=== PATIENT | female | born 1975 | race African-American/Black ===

== ENCOUNTER 2017-01-13 22:28 | Emergency (ER) | payer OTHER ==
[~2017-01-13] VITALS: Ht 172.7 cm; Wt 169.6 kg
[~2017-01-13 22:28] MED LIST: ACET-3457 PO; IBUP-974 PO; [UNRECOGNIZED DRUG - CODE] PO
[2017-01-13 22:35] VITALS: BP 156/103
--- NOTE | 2017-01-13 23:56 | NUR ---
PT TAKEN TO BED 9
--- NOTE | 2017-01-14 | NUR ---
41/F W C/O 01/01 MIDBACK/NECK STABBING PAIN, GRADUAL ONSET X 1 MONTH. PT STATES "I HAVE SOFT BONES AND I USUALLY HAVE BACK PAIN AND I WOULD TAKE IBUPROFEN AND IT WILL GO AWAY, BUT THIS TIME IT HAS NOT". NO SURGICAL HISTORY. BACK/NECK PAIN ASSOSCIATED WITH HEADACHE X 2 DAYS. ALSO C/O 01/01 LUQ ABD PAIN, ACHING, NONRADIATING X 3 DAYS. ASSOSCIATED SYMPTOMS: NAUSEA AND DIARRHEA, DENIES VOMITING AND FEVER. CURRENT BS: 220, LAST MEAL 2 HOURS AGO. PMH: HTN, DM, RA
--- NOTE | 2017-01-14 01:43 | NUR ---
Dr. Long evaluating patient at bedside.
[2017-01-14] MEDS ORDERED: NACL 0.9% 1,000 ML IV ONE (01:55)
[2017-01-14] MEDS ORDERED: HYDROmorphone 1 MG/ML AMP IVP ONE (01:55)
[2017-01-14] MEDS ORDERED: METOCLOPRAMIDE 10 MG/2 ML INJ VIAL IVP ONE (01:55)
[2017-01-14 02:28] LABS: MEAN CORPUSCULAR VOLUME 73 fL (80-94)
[2017-01-14 02:29] LABS: APPEARANCE,URINE CLEAR (CLEAR); BILIRUBIN,URINE NEGATIVE (NEGATIVE); BLOOD, URINE NEGATIVE (NEGATIVE); COLOR,URINE YELLOW (YELLOW); LEUKOCYTE ESTERASE ,URINE NEGATIVE (NEGATIVE); NITRITE, URINE NEGATIVE (NEGATIVE); UGLUCOSE NEGATIVE (NEGATIVE)
[2017-01-14 02:32] LABS: HEMATOCRIT 35.8 % (36-48); HEMOGLOBIN 11.4 g/dL (12.0-16.0); MEAN CORPUSCULAR HEMOGLOBIN 23 pg (27-31); MEAN CORPUSCULAR HGB CONC 32 g/dL (33-37); PLATELET COUNT (AUTO) 382 K/uL (140-450); RED BLOOD CELL COUNT(AUTO) 4.89 MIL/uL (4.20-5.40); RED CELL DISTRIBUTION WIDTH 14.5 % (11.6-13.7); WHITE BLOOD COUNT (AUTO) 10.4 K/uL (4.8-10.8)
[2017-01-14 02:36] LABS: ANION GAP 8.7 (8-16); CARBON DIOXIDE 30.8 mmol/L (21-32); CREATININE 0.9 mg/dL (0.6-1.3); POTASSIUM 3.5 mmol/L (3.5-5.1)
[2017-01-14 02:39] LABS: EOSINOPHILS % (MANUAL) 1 % (0-4); LYMPHOCYTES % (MANUAL) 46 % (20-46); MONOCYTES % (MANUAL) 4 % (5-12)
[2017-01-14 02:42] LABS: ALBUMIN 3.7 g/dL (3.4-5.0); RBC,URINE 0-5 (RARE) /HPF (0-5); TOTAL BILIRUBIN 0.4 mg/dL (0.0-1.0); WBC,URINE NONE SEEN /HPF (0-5)
--- NOTE | 2017-01-14 02:44 | NUR ---
PT ASLEEP COMFORTABLY ON BED, VSS, PT STABLE. ALL NEEDS MET AT THIS TIME.
--- NOTE | 2017-01-14 03:05 | NUR ---
Note mooseone in EDM - 01/14/[address] [facility] Patient discharged with v/s stable. Written and verbal after care instructions given and explained. Patient alert, oriented and verbalized understanding of instructions. Ambulatory with steady gait. All questions addressed prior to discharge. ID band removed. Patient advised to follow up with PMD. Rx of Reglan 10mg given. Patient educated on indication of medication including possible reaction and side effects. Opportunity to ask questions provided and answered.
--- NOTE | 2017-01-14 03:06 | NUR ---
IV removed, catheter intact and site benign. Applied folded 4x4 gauze and tape to stop bleeding.
[2017-01-14 03:07] VITALS: BP 162/94
== END 2017-01-14 03:06 | disposition home or self-care (01) ==
LOC: MED 22:28
DX: G43.909 Migraine, unspecified, not intractable, without status migrainosus (principal); M62.830 Muscle spasm of back; J45.909 Unspecified asthma, uncomplicated; E11.9 Type 2 diabetes mellitus without complications; I10 Essential (primary) hypertension; M79.7 Fibromyalgia; Z88.2 Allergy status to sulfonamides; Z88.5 Allergy status to narcotic agent; Z88.8 Allergy status to other drugs, medicaments and biological substances; Z79.899 Other long term (current) drug therapy
CPT/HCPCS: 36415; 80053; 81001; 81025; 82948; 84484; 85025; 93005; 96361; 96374; 96375; 99285; J1170; J2765; J7030

== ENCOUNTER 2017-01-19 03:28 | Emergency (ER) | payer OTHER ==
[~2017-01-19] VITALS: Ht 172.7 cm; Wt 163.3 kg
[2017-01-19 03:31] VITALS: BP 147/104
--- NOTE | 2017-01-19 03:49 | NUR ---
PT TAKEN TO XRAY
--- NOTE | 2017-01-19 03:57 | NUR ---
PT RETURN FROM XRAY
--- NOTE | 2017-01-19 04:35 | NUR ---
PT TAKEN TO BED 11
--- NOTE | 2017-01-19 05:29 | NUR ---
41/F PRESENTS TO THE ER C/O PAIN TO THE RT FOOT/TOE POST BRICK FALLING ON FOOT. PMH DM, CHRONIC PAIN. PT IS ABLE TO MOVE RIGHT FOOT AND RT TOES PULSES ARE PRESENT, CAP REFILL <2 SEC. SWELLING TO RT FOOT NO ACTIVE BLEEDING NOTED AT THIS TIME. PATIENT RATES PAIN AT 10 ACHING AND NON RADIATING. PT DENIES N/T. PT IN BED WITH AT BEDSIDE. ER MD NOTIFIED OF PT STATUS.
--- NOTE | 2017-01-19 05:37 | NUR ---
Dr. Da Silva evaluating patient at bedside.
[2017-01-19] MEDS ORDERED: KETOROLAC 60 MG/2 ML VIAL IM ONE (05:40)
[2017-01-19 07:04] VITALS: BP 147/104
--- NOTE | 2017-01-19 07:05 | NUR ---
Patient discharged with v/s stable. Written and verbal after care instructions given and explained. Patient verbalized understanding. WHEELCHAIR to car. All questions addressed prior to discharge. Advised to follow up with PMD.
== END 2017-01-19 07:05 | disposition home or self-care (01) ==
LOC: MED 03:28
DX: S90.32XA Contusion of left foot, initial encounter (principal); M79.671 Pain in right foot; J45.909 Unspecified asthma, uncomplicated; E11.9 Type 2 diabetes mellitus without complications; I10 Essential (primary) hypertension; Z88.2 Allergy status to sulfonamides; Z88.1 Allergy status to other antibiotic agents; Z88.5 Allergy status to narcotic agent; Z88.8 Allergy status to other drugs, medicaments and biological substances; Z79.899 Other long term (current) drug therapy; W04.XXXA Fall while being carried or supported by other persons, initial encounter; Y93.89 Activity, other specified; Y92.89 Other specified places as the place of occurrence of the external cause; Y99.8 Other external cause status
CPT/HCPCS: 73630; 96372; 99284; J1885

== ENCOUNTER 2017-07-26 11:47 | Emergency (ER) | payer OTHER ==
[~2017-07-26] VITALS: Ht 172.7 cm; Wt 167.8 kg
[2017-07-26 11:50] VITALS: BP 156/91
--- NOTE | 2017-07-26 12:00 | NUR ---
PT. CAME INTO ED W/ C/O PAIN IN HER L HAND JOINTS AND BILATERAL FOOT JOINTS AND ALSO A PAIN UNDER HER L BREAST THAT STARTED LAST NIGHT. PT. STATES " I HAVE PAIN THAT STARTED LAST NIGHT, I DONT KNOW WHY AND I DECIDED TO COME GET CHECKED OUT". 8/10 PAIN IN L HAND JOINTS AND BILATERAL FOOT JOINTS DESCRIBED ACHING PAIN THAT IS NON RADIATING, ALSO PAIN UNDER L BREAST THAT STARTED LAST NIGHT THAT RADIATES TO HER L UPPER BACK AND DESCRIBES IT ACHING DULL PAIN THAT IS CONTINOUS. AAOX4, RR EVEN AND UNLABORED, DENIES N/V/D. DENIES SOB. FIANCEE AT BEDSIDE. DR. ARAUJO NOTIFIED. WILL CONTINUE TO MONITOR.
[2017-07-26 12:49] LABS: BASOPHILS # (AUTO) 0.1 K/uL (0.00-0.22); BASOPHILS % (AUTO) 0.6 % (0.0-2.0); EOSINOPHILS # (AUTO) 0.2 K/uL (0-0.4); EOSINOPHILS % (AUTO) 1.5 % (0.0-4.0); HEMOGLOBIN 9.8 g/dL (12.0-16.0); LYMPHOCYTES % (AUTO) 29.2 % (20.5-51.1); MEAN CORPUSCULAR HEMOGLOBIN 22 pg (27-31); MEAN CORPUSCULAR HGB CONC 31 g/dL (33-37); MEAN CORPUSCULAR VOLUME 70.4 fL (80-94); MONOCYTES # (AUTO) 0.7 K/uL (0.8-1.0); MONOCYTES % (AUTO) 6.9 % (1.7-9.3); NEUTROPHILS # (AUTO) 6.4 K/uL (1.8-7.7); NEUTROPHILS % (AUTO) 61.8 % (42.2-75.2); PLATELET COUNT (AUTO) 347 K/uL (140-450); RED BLOOD CELL COUNT(AUTO) 4.55 MIL/uL (4.20-5.40); RED CELL DISTRIBUTION WIDTH 16.1 % (11.6-13.7); WHITE BLOOD COUNT (AUTO) 10.3 K/uL (4.8-10.8)
[2017-07-26 12:58] LABS: CARBON DIOXIDE 31.8 mmol/L (21-32); CREATININE 1.1 mg/dL (0.6-1.3); POTASSIUM 3.8 mmol/L (3.5-5.1)
[2017-07-26 13:04] LABS: ALBUMIN 3.2 g/dL (3.4-5.0); TOTAL BILIRUBIN 0.3 mg/dL (0.0-1.0)
--- NOTE | 2017-07-26 14:04 | NUR ---
Patient discharged with v/s stable. Written and verbal after care instructions given and explained. Patient alert, oriented and verbalized understanding of instructions. Ambulatory with steady gait. All questions addressed prior to discharge. ID band removed. Patient advised to follow up with PMD. Rx of prednisone given. Patient educated on indication of medication including possible reaction and side effects. Opportunity to ask questions provided and answered. labs and cxr results handed to pt to give to pmd upon f/u within 2-3 days
[2017-07-26 14:05] VITALS: BP 166/89
== END 2017-07-26 14:04 | disposition home or self-care (01) ==
LOC: MED 11:47
DX: M06.80 Other specified rheumatoid arthritis, unspecified site (principal); R20.2 Paresthesia of skin; R07.89 Other chest pain; E11.9 Type 2 diabetes mellitus without complications; I10 Essential (primary) hypertension; J45.909 Unspecified asthma, uncomplicated; Z88.1 Allergy status to other antibiotic agents; Z88.2 Allergy status to sulfonamides; Z88.6 Allergy status to analgesic agent; Z88.8 Allergy status to other drugs, medicaments and biological substances
CPT/HCPCS: 36415; 71045; 80053; 81002; 81025; 83690; 83880; 84484; 85025; 93005; 99285; Q0092

== ENCOUNTER 2017-12-16 17:12 | Emergency (ER) | payer OTHER ==
[~2017-12-16] VITALS: Ht 172.7 cm; Wt 163.3 kg
--- NOTE | 2017-12-16 17:16 | NUR ---
PT AMBULATES TO BED 2
[2017-12-16 17:22] VITALS: BP 143/78
--- NOTE | 2017-12-16 17:33 | NUR ---
42YO F bib fiance c/o chest pain since saturday INTERMITTENTLY HAVING DULLPAIN , "maybe due to stress" PER PT, pressure 9/10 pain scale. PT STATS PAINS START WHEN ARGUING WITH PARTNER. ER MDMADE AWARE. LS CLEAR THROUGHOUT. ABD SOFT NON TENDER. WILL CONTINUE TO MONITOR. ER MD MADE AWARE. PT POSITIONED FOR COMFORT hx; dm, fibromyalgia, garduno palsy, anemia, htn rx; glipizide
--- NOTE | 2017-12-16 17:36 | NUR ---
EMT AT BEDSIDE FOR EKG
--- NOTE | 2017-12-16 17:50 | NUR ---
PT AMBULATED TO BATHROOM WITH STEADY GAIT
[2017-12-16] MEDS ORDERED: NACL 0.9% 1,000 ML IV ONE (19:45)
[2017-12-16] MEDS ORDERED: fentaNYL 0.05 MG/ML VIAL IVP ONE (19:45)
[2017-12-16 20:08] LABS: BASOPHILS % (AUTO) 0.6 % (0.0-2.0); EOSINOPHILS # (AUTO) 0.2 K/uL (0-0.4); EOSINOPHILS % (AUTO) 2.5 % (0.0-4.0); HEMATOCRIT 32.7 % (36-48); HEMOGLOBIN 10.3 g/dL (12.0-16.0); LYMPHOCYTES # (AUTO) 2.4 K/uL (2.5-16.5); LYMPHOCYTES % (AUTO) 33.5 % (20.5-51.1); MEAN CORPUSCULAR HEMOGLOBIN 23 pg (27-31); MEAN CORPUSCULAR HGB CONC 31 g/dL (33-37); MEAN CORPUSCULAR VOLUME 71.6 fL (80-94); MONOCYTES # (AUTO) 0.7 K/uL (0.8-1.0); MONOCYTES % (AUTO) 10.3 % (1.7-9.3); NEUTROPHILS # (AUTO) 3.8 K/uL (1.8-7.7); NEUTROPHILS % (AUTO) 53.1 % (42.2-75.2); PLATELET COUNT (AUTO) 308 K/uL (140-450); RED BLOOD CELL COUNT(AUTO) 4.57 MIL/uL (4.20-5.40); RED CELL DISTRIBUTION WIDTH 16.5 % (11.6-13.7); WHITE BLOOD COUNT (AUTO) 7.2 K/uL (4.8-10.8)
[2017-12-16 20:28] LABS: POTASSIUM 4.2 mmol/L (3.5-5.1)
[2017-12-16 20:29] LABS: ANION GAP 10.2 (8-16); CREATININE 0.8 mg/dL (0.6-1.3); TOTAL BILIRUBIN 0.5 mg/dL (0.0-1.0)
[2017-12-16 20:30] LABS: ALBUMIN 3.3 g/dL (3.4-5.0)
--- NOTE | 2017-12-16 20:50 | NUR ---
PT LAYING IN BED, NO NEW NEEDS AT THIS TIME.
[2017-12-16 21:52] VITALS: BP 156/83
--- NOTE | 2017-12-16 21:53 | NUR ---
Patient discharged with v/s stable. Written and verbal after care instructions given and explained. Patient alert, oriented and verbalized understanding of instructions. Ambulatory with steady gait. All questions addressed prior to discharge. ID band removed. Patient advised to follow up with PMD. Rx of MEDROL, IBUPROFEN, TRAMADOL, PROTONIX given. Patient educated on indication of medication including possible reaction and side effects. Opportunity to ask questions provided and answered.
== END 2017-12-16 21:52 | disposition home or self-care (01) ==
LOC: MED 17:12
DX: M94.0 Chondrocostal junction syndrome [Tietze] (principal); J45.909 Unspecified asthma, uncomplicated; E11.9 Type 2 diabetes mellitus without complications; I10 Essential (primary) hypertension; M79.7 Fibromyalgia; G51.0 Bell's palsy; Z86.2 Personal history of diseases of the blood and blood-forming organs and certain disorders involving the immune mechanism; Z88.1 Allergy status to other antibiotic agents; Z88.2 Allergy status to sulfonamides; Z88.5 Allergy status to narcotic agent; Z88.6 Allergy status to analgesic agent; Z79.899 Other long term (current) drug therapy
CPT/HCPCS: 36415; 71045; 80053; 81002; 81025; 84484; 85025; 93005; 96374; 99285; J3010; Q0092; 96361; J7030

== ENCOUNTER 2018-02-21 03:20 | Emergency (ER) | payer OTHER ==
[~2018-02-21] VITALS: Ht 172.7 cm; Wt 163.3 kg
[2018-02-21 03:27] VITALS: BP 172/90
[2018-02-21] MEDS ORDERED: KETOROLAC 30 MG/ML VIAL IM ONE (04:55)
[2018-02-21] MEDS ORDERED: DIAZEPAM 5 MG TAB PO ONE (04:55)
[2018-02-21 05:44] VITALS: BP 172/90
== END 2018-02-21 05:44 | disposition home or self-care (01) ==
LOC: MED 03:20
DX: S39.012A Strain of muscle, fascia and tendon of lower back, initial encounter (principal); J45.909 Unspecified asthma, uncomplicated; I10 Essential (primary) hypertension; E11.9 Type 2 diabetes mellitus without complications; Z88.2 Allergy status to sulfonamides; Z88.1 Allergy status to other antibiotic agents; Z88.8 Allergy status to other drugs, medicaments and biological substances; Z88.5 Allergy status to narcotic agent; Z79.1 Long term (current) use of non-steroidal anti-inflammatories (NSAID); Z79.899 Other long term (current) drug therapy; W18.49XA Other slipping, tripping and stumbling without falling, initial encounter; Y93.89 Activity, other specified; Y92.524 Gas station as the place of occurrence of the external cause; Y99.8 Other external cause status
CPT/HCPCS: 96372; 99283; J1885

== ENCOUNTER 2018-05-07 11:17 | Emergency (ER) | payer OTHER ==
[~2018-05-07] VITALS: Ht 172.7 cm; Wt 163.3 kg
--- NOTE | 2018-05-07 11:24 | NUR ---
PT AMBULATED TO ER BED 07
[2018-05-07 11:28] VITALS: BP 156/81
--- NOTE | 2018-05-07 11:30 | NUR ---
C/O HEADACHE/NAUSEA. SKIN IS PINK/WARM/DRY; AAOX4 WITH EVEN AND STEADY GAIT; LUNGS CLEAR BL; HR EVEN AND REGULAR; PT DENIES ANY FEVER, CP, SOB, OR COUGH AT THIS TIME; PATIENT STATES PAIN OF 10/10 AT THIS TIME; VSS; PATIENT POSITIONED FOR COMFORT; HOB ELEVATED; BEDRAILS UP X2; BED DOWN. ER MD MADE AWARE OF PT STATUS.
[2018-05-07] MEDS ORDERED: NACL 0.9% 1,000 ML IV ONE (11:45)
[2018-05-07] MEDS ORDERED: METOCLOPRAMIDE 10 MG/2 ML INJ VIAL IVP ONE (11:45)
[2018-05-07] MEDS ORDERED: diphenhydrAMINE 50 MG/ML VIAL IVP ONE (11:45)
--- NOTE | 2018-05-07 11:45 | NUR ---
DR WILLIAM AT BEDSIDE.
[2018-05-07] MEDS ORDERED: METOCLOPRAMIDE 10 MG/2 ML INJ VIAL IM ONE (12:25)
[2018-05-07] MEDS ORDERED: diphenhydrAMINE 50 MG/ML VIAL IM ONE (12:25)
--- NOTE | 2018-05-07 13:00 | NUR ---
NO NEEDS STATED AT THIS TIME.
[2018-05-07 14:57] VITALS: BP 148/78
--- NOTE | 2018-05-07 14:58 | NUR ---
Patient discharged with v/s stable. Written and verbal after care instructions given and explained. Patient alert, oriented and verbalized understanding of instructions. Ambulatory with steady gait. All questions addressed prior to discharge. ID band removed. Patient advised to follow up with PMD. Rx of IMITREX, FIORICET given. Patient educated on indication of medication including possible reaction and side effects. Opportunity to ask questions provided and answered.
== END 2018-05-07 14:58 | disposition home or self-care (01) ==
LOC: MED 11:17
DX: R51 Headache (principal); J45.909 Unspecified asthma, uncomplicated; E11.9 Type 2 diabetes mellitus without complications; I10 Essential (primary) hypertension; G43.909 Migraine, unspecified, not intractable, without status migrainosus; Z79.899 Other long term (current) drug therapy; Z88.1 Allergy status to other antibiotic agents; Z88.2 Allergy status to sulfonamides; Z88.5 Allergy status to narcotic agent; Z88.8 Allergy status to other drugs, medicaments and biological substances
CPT/HCPCS: 70450; 81002; 81025; 96372; 99284; J2765; J1200

== ENCOUNTER 2019-01-02 07:41 | Emergency (ER) | payer OTHER ==
[~2019-01-02] VITALS: Ht 172.7 cm; Wt 163.3 kg
[2019-01-02] MEDS ORDERED: GLIP5TER PO (07:47)
[2019-01-02 07:48] VITALS: BP 169/93
[2019-01-02] MEDS ORDERED: fentaNYL 0.05 MG/ML VIAL IM ONE (11:15)
[2019-01-02 12:13] VITALS: BP 135/82
== END 2019-01-02 12:14 | disposition home or self-care (01) ==
LOC: MED 07:41
DX: R10.32 Left lower quadrant pain (principal); R19.7 Diarrhea, unspecified; M54.9 Dorsalgia, unspecified; J45.909 Unspecified asthma, uncomplicated; E11.9 Type 2 diabetes mellitus without complications; I10 Essential (primary) hypertension; Z79.84 Long term (current) use of oral hypoglycemic drugs; Z79.899 Other long term (current) drug therapy; Z88.2 Allergy status to sulfonamides; Z88.1 Allergy status to other antibiotic agents; Z88.5 Allergy status to narcotic agent; Z88.8 Allergy status to other drugs, medicaments and biological substances
CPT/HCPCS: 74176; 76856; 81002; 81025; 96372; 99284; J3010; Q0092

== ENCOUNTER 2019-03-03 21:30 | Emergency (ER) | payer OTHER ==
[~2019-03-03] VITALS: Ht 172.7 cm; Wt 163.3 kg
[2019-03-03 21:30] VITALS: BP 158/114
[~2019-03-03 21:30] MED LIST changes: -ACET-3457 PO; +GLIP5TER PO; -IBUP-974 PO
--- NOTE | 2019-03-03 21:34 | NUR ---
TO LOBBY A/W BED AMBULATORY
--- NOTE | 2019-03-03 21:56 | NUR ---
PT AMBULATED TO BED 01
--- NOTE | 2019-03-03 22:00 | NUR ---
ASSESSMENT COMPLETE AT THIS TIME. PATIENT LAYING BED WITH SIDE RAIL UP ON ONE SIDE. AT BEDSIDE. BED IN LOW LOCKED POSITION. AAO., VSS ON MONITOR.
[2019-03-03] MEDS ORDERED: NACL 0.9% 1,000 ML IV ONE (22:10)
[2019-03-03] MEDS ORDERED: ONDANSETRON 4 MG/2 ML VIAL IVP ONE (22:10)
[2019-03-03] MEDS ORDERED: KETOROLAC 30 MG/ML VIAL IVP ONE (22:10)
[2019-03-03] MEDS ORDERED: hydrALAZINE 20 MG/ML VIAL IVP ONE (22:15)
[2019-03-03 22:41] LABS: BASOPHILS # (AUTO) 0.1 K/uL (0.00-0.22); EOSINOPHILS # (AUTO) 0.1 K/uL (0-0.4); HEMOGLOBIN 9.7 g/dL (12.0-16.0); LYMPHOCYTES # (AUTO) 2.3 K/uL (2.5-16.5); MONOCYTES # (AUTO) 0.7 K/uL (0.8-1.0); NEUTROPHILS # (AUTO) 4.5 K/uL (1.8-7.7); RED CELL DISTRIBUTION WIDTH 16.9 % (11.6-13.7)
[2019-03-03 22:43] LABS: APPEARANCE,URINE CLEAR (CLEAR); BILIRUBIN,URINE NEGATIVE (NEGATIVE); BLOOD, URINE NEGATIVE (NEGATIVE); COLOR,URINE YELLOW (YELLOW); LEUKOCYTE ESTERASE ,URINE NEGATIVE (NEGATIVE); NITRITE, URINE NEGATIVE (NEGATIVE); PH,URINE 5.5 (5.0-9.0); UGLUCOSE NEGATIVE (NEGATIVE)
[2019-03-03 22:45] LABS: EOSINOPHILS % (AUTO) 1.6 % (0.0-4.0); LYMPHOCYTES % (AUTO) 29.4 % (20.5-51.1); MEAN CORPUSCULAR HEMOGLOBIN 21 pg (27-31); MEAN CORPUSCULAR HGB CONC 30 g/dL (33-37); MONOCYTES % (AUTO) 9.1 % (1.7-9.3); NEUTROPHILS % (AUTO) 58.9 % (42.2-75.2); PLATELET COUNT (AUTO) 367 K/uL (140-450); RED BLOOD CELL COUNT(AUTO) 4.71 MIL/uL (4.20-5.40); WHITE BLOOD COUNT (AUTO) 7.7 K/uL (4.8-10.8)
[2019-03-03 22:49] LABS: CARBON DIOXIDE 27.9 mmol/L (21-32); CREATININE 0.8 mg/dL (0.6-1.3); POTASSIUM 3.9 mmol/L (3.5-5.1)
[2019-03-03 22:54] LABS: HEMATOCRIT 29.1 % (36-48); MEAN CORPUSCULAR VOLUME 68.4 fL (80-94)
[2019-03-03 22:55] LABS: ALBUMIN 3.2 g/dL (3.4-5.0); TOTAL BILIRUBIN 0.6 mg/dL (0.0-1.0)
[2019-03-03] MEDS ORDERED: PROCHLORPERAZINE 10 MG/2 ML VIAL IVP ONE (23:40)
[2019-03-03] MEDS ORDERED: diphenhydrAMINE 50 MG/ML VIAL IVP ONE (23:40)
[2019-03-04 00:29] VITALS: BP 148/68
--- NOTE | 2019-03-04 00:29 | NUR ---
Patient discharged with v/s stable. Written and verbal after care instructions given and explained. Patient verbalized understanding. Ambulatory with steady gait. All questions addressed prior to discharge. Advised to follow up with PMD. PT STATED SHE HAD NO PAIN PRIOR TO D/C .
--- NOTE | 2019-03-04 12:16 | NUR ---
Late entry. Confirmed with RN that 0.9 NS IV completed at 2405
== END 2019-03-04 00:29 | disposition home or self-care (01) ==
LOC: MED 21:30
DX: R53.1 Weakness (principal); F15.90 Other stimulant use, unspecified, uncomplicated; K59.00 Constipation, unspecified; E86.0 Dehydration; R51 Headache; M79.7 Fibromyalgia; J45.909 Unspecified asthma, uncomplicated; E11.9 Type 2 diabetes mellitus without complications; I10 Essential (primary) hypertension; Z79.84 Long term (current) use of oral hypoglycemic drugs; Z79.899 Other long term (current) drug therapy; Z88.1 Allergy status to other antibiotic agents; Z88.5 Allergy status to narcotic agent; Z88.2 Allergy status to sulfonamides; Z88.8 Allergy status to other drugs, medicaments and biological substances
CPT/HCPCS: 36415; 80053; 81003; 84484; 85025; 93005; 96361; 96374; 96375; 99283; J0360; J0780; J1200; J1885; J2405; J7030

== ENCOUNTER 2019-11-14 22:13 | Emergency (ER) | payer OTHER ==
[~2019-11-14] VITALS: Ht 172.7 cm; Wt 173.7 kg
[2019-11-14 22:43] VITALS: BP 156/124
--- NOTE | 2019-11-14 22:48 | NUR ---
PT AMBULATED TO BED 03 WITH STEADY GAIT.
--- NOTE | 2019-11-14 23:01 | NUR ---
C/O EPIGASTRIC PAIN X 3 WEEKS. PT B/P- 156/124. HASN'T TAKEN MEDS TODAY. MHX: FIBROMYALGIA, HTN, DIABETES, ARTHRITIS ALLERGIES: AMOXICILLIN, SULFA, AUGMENTIN, BACTRIM
--- NOTE | 2019-11-14 23:13 | NUR ---
PT C/O OF STOMACH PAIN RADIATING INTO LEFT SIDE OF HER BACK X 3 WEEKS, SHARP ACHING TYPE PAIN. HAS BEEN HAVING APPETITE AND EATING CAUSES INCREASE IN DISCOMFORT. +N/D AND CONSTIPATION, NO VOMITINMG. NO PAIN WITH URINATION. AFEBRILE. NO SOB. + BOWEL SOUNDS NONTENDER ABD UPON PALPATION. BED IN LOWEST POSITION AND SIDERAIL UP X 1.
--- NOTE | 2019-11-14 23:13 | NUR ---
URINE COLLECTED AND DIP DONE, RESULTS SHOWN TO MD SIDDIQI.
--- NOTE | 2019-11-14 23:23 | NUR ---
LAB AT BEDSIDE
[2019-11-14 23:54] LABS: EOSINOPHILS # (AUTO) 0.2 K/uL (0-0.4); EOSINOPHILS % (AUTO) 2.1 % (0.0-4.0); HEMOGLOBIN 9.3 g/dL (12.0-16.0); MONOCYTES # (AUTO) 0.6 K/uL (0.8-1.0)
[2019-11-14 23:58] LABS: BASOPHILS # (AUTO) 0.1 K/uL (0.00-0.22); BASOPHILS % (AUTO) 0.9 % (0.0-2.0); HEMATOCRIT 30.6 % (36-48); LYMPHOCYTES % (AUTO) 37.9 % (20.5-51.1); MEAN CORPUSCULAR HEMOGLOBIN 20 pg (27-31); MEAN CORPUSCULAR HGB CONC 30 g/dL (33-37); MEAN CORPUSCULAR VOLUME 66.9 fL (80-94); MONOCYTES % (AUTO) 8.1 % (1.7-9.3); PLATELET COUNT (AUTO) 364 K/uL (140-450); RED BLOOD CELL COUNT(AUTO) 4.57 MIL/uL (4.20-5.40); RED CELL DISTRIBUTION WIDTH 16.8 % (11.6-13.7); WHITE BLOOD COUNT (AUTO) 7.9 K/uL (4.8-10.8)
[2019-11-15] MEDS ORDERED: KETOROLAC 30 MG/ML VIAL IM ONE (00:20)
[2019-11-15 00:29] LABS: ALBUMIN 3.2 g/dL (3.4-5.0); ANION GAP 13.4 (8-16); CARBON DIOXIDE 26.2 mmol/L (21-32); CREATININE 0.8 mg/dL (0.6-1.3); POTASSIUM 3.6 mmol/L (3.5-5.1); TOTAL BILIRUBIN 0.5 mg/dL (0.0-1.0)
[2019-11-15 00:48] LABS: APPEARANCE,URINE CLEAR (CLEAR); BILIRUBIN,URINE NEGATIVE (NEGATIVE); BLOOD, URINE NEGATIVE (NEGATIVE); COLOR,URINE YELLOW (YELLOW); LEUKOCYTE ESTERASE ,URINE NEGATIVE (NEGATIVE); NITRITE, URINE NEGATIVE (NEGATIVE); UGLUCOSE NEGATIVE (NEGATIVE)
[2019-11-15] MEDS ORDERED: oxyCODONE/APAP 5/325 MG 1 TAB TAB PO ONE (01:15)
[2019-11-15 01:54] VITALS: BP 152/99
--- NOTE | 2019-11-15 01:55 | NUR ---
Patient discharged with v/s stable. Written and verbal after care instructions given and explained. Patient alert, oriented and verbalized understanding of instructions. Ambulatory with steady gait. All questions addressed prior to discharge. ID band removed. Patient advised to follow up with PMD. Rx of NIRALAX given. Patient educated on indication of medication including possible reaction and side effects. Opportunity to ask questions provided and answered.
== END 2019-11-15 01:55 | disposition home or self-care (01) ==
LOC: MED 22:13
DX: R10.13 Epigastric pain (principal); R11.0 Nausea; R19.7 Diarrhea, unspecified; E11.9 Type 2 diabetes mellitus without complications; I10 Essential (primary) hypertension; J45.909 Unspecified asthma, uncomplicated; Z79.84 Long term (current) use of oral hypoglycemic drugs; Z79.899 Other long term (current) drug therapy; Z88.1 Allergy status to other antibiotic agents; Z88.2 Allergy status to sulfonamides; Z88.5 Allergy status to narcotic agent; Z88.8 Allergy status to other drugs, medicaments and biological substances
CPT/HCPCS: 36415; 74176; 80053; 81003; 81025; 83690; 85025; 96372; 99284; J1885

== ENCOUNTER 2020-11-20 05:15 | Emergency (ER) | payer OTHER ==
[~2020-11-20] VITALS: Ht 172.7 cm; Wt 170.6 kg
[2020-11-20 05:20] VITALS: BP 192/106
--- NOTE | 2020-11-20 05:22 | NUR ---
SEEN AND EXAMINED BY ARIN WITH ORDERS, CARRIED OUT
[2020-11-20] MEDS ORDERED: HYDROcodone/APAP 5/325 MG 1 TAB TAB PO ONE (05:25)
--- NOTE | 2020-11-20 05:25 | NUR ---
MEDICATED PER ERMDS ORDER, TOLERATED WELL.
[2020-11-20 05:35] VITALS: BP 192/106
[2020-11-20] MEDS ORDERED: ACET-8386 PO (05:53)
[2020-11-20] MEDS ORDERED: ACET-58 PO (06:05)
--- NOTE | 2020-11-20 06:20 | NUR ---
Patient discharged with v/s stable. Written and verbal after care instructions given and explained. Patient alert, oriented and verbalized understanding of instructions. Ambulatory with steady gait. All questions addressed prior to discharge. ID band removed. Patient advised to follow up with PMD. Rx of HYDROCODONE/ACETAMINOPHEN given. Patient educated on indication of medication including possible reaction and side effects. Opportunity to ask questions provided and answered.
== END 2020-11-20 06:20 | disposition home or self-care (01) ==
LOC: MED 05:15
DX: S90.31XA Contusion of right foot, initial encounter (principal); E11.9 Type 2 diabetes mellitus without complications; I10 Essential (primary) hypertension; M06.9 Rheumatoid arthritis, unspecified; W20.8XXA Other cause of strike by thrown, projected or falling object, initial encounter; Y93.89 Activity, other specified; Y92.89 Other specified places as the place of occurrence of the external cause; Y99.8 Other external cause status
CPT/HCPCS: 73630; 99283; Q0092

== ENCOUNTER 2021-01-14 02:57 | Observation (INO) | payer OTHER, SELFPAY ==
[~2021-01-14] VITALS: Ht 172.7 cm; Wt 170.1 kg
[~2021-01-14 02:57] MED LIST changes: +ACET-58 PO; +ACET-8386 PO
[2021-01-14 03:24] VITALS: BP 195/97
--- NOTE | 2021-01-14 03:27 | NUR ---
to lobby a/w bed ambulatory
[2021-01-14 07:24] LABS: BASOPHILS % (AUTO) 0.5 % (0.0-2.0); EOSINOPHILS # (AUTO) 0.2 K/uL (0-0.4); EOSINOPHILS % (AUTO) 2.3 % (0.0-4.0); HEMATOCRIT 31.2 % (36-48); HEMOGLOBIN 9.5 g/dL (12.0-16.0); LYMPHOCYTES # (AUTO) 3.5 K/uL (2.5-16.5); LYMPHOCYTES % (AUTO) 42.1 % (20.5-51.1); MEAN CORPUSCULAR HEMOGLOBIN 21 pg (27-31); MEAN CORPUSCULAR HGB CONC 31 g/dL (33-37); MEAN CORPUSCULAR VOLUME 68.3 fL (80-94); MONOCYTES # (AUTO) 0.7 K/uL (0.8-1.0); MONOCYTES % (AUTO) 8.8 % (1.7-9.3); NEUTROPHILS # (AUTO) 3.8 K/uL (1.8-7.7); NEUTROPHILS % (AUTO) 46.3 % (42.2-75.2); PLATELET COUNT (AUTO) 410 K/uL (140-450); RED BLOOD CELL COUNT(AUTO) 4.57 MIL/uL (4.20-5.40); RED CELL DISTRIBUTION WIDTH 17.1 % (11.6-13.7); WHITE BLOOD COUNT (AUTO) 8.3 K/uL (4.8-10.8)
[2021-01-14 07:42] LABS: ALBUMIN 3.5 g/dL (3.4-5.0); ANION GAP 13.2 (8-16); CARBON DIOXIDE 27.6 mmol/L (21-32); CREATININE 0.9 mg/dL (0.6-1.3); POTASSIUM 3.8 mmol/L (3.5-5.1); TOTAL BILIRUBIN 0.4 mg/dL (0.0-1.0)
--- NOTE | 2021-01-14 07:55 | NUR ---
UA walked to lab
[2021-01-14] MEDS ORDERED: KETOROLAC 30 MG/ML VIAL IVP ONE (08:20)
[2021-01-14] MEDS ORDERED: NACL 0.9% 1,000 ML IV ONE (08:20)
--- NOTE | 2021-01-14 08:25 | NUR ---
PT TAKEN TO ER BED 1
--- NOTE | 2021-01-14 08:30 | NUR ---
45 Y/O FEMALE C/O ABD PAIN X 1 WEEK WITH VAGINAL BLEEDING AND SPOTTING. DENIES ANY NAUSEA/VOMTING OR CONSTIPATION/DIARRHEA. DENIES ANY RECENT FEVER. PT STATES 7/10 DULL PAIN. MEDHX: ASTHMA, DM, HTN SEE ALLERGY LIST
[2021-01-14 09:28] LABS: PROTHROMBIN TIME 9.9 secs (10.8-13.4)
[2021-01-14 09:51] LABS: APPEARANCE,URINE CLEAR (CLEAR); BILIRUBIN,URINE NEGATIVE (NEGATIVE); BLOOD, URINE NEGATIVE (NEGATIVE); COLOR,URINE YELLOW (YELLOW); LEUKOCYTE ESTERASE ,URINE NEGATIVE (NEGATIVE); NITRITE, URINE NEGATIVE (NEGATIVE); UGLUCOSE NEGATIVE (NEGATIVE)
[2021-01-14] MEDS ORDERED: MORPHINE SULFATE 4 MG/ML SYR IVP ONE (09:55)
--- NOTE | 2021-01-14 10:01 | NUR ---
PT TAKEN TO CT SCAN VIA SVETLANA
--- NOTE | 2021-01-14 10:14 | NUR ---
PT RETURNED FROM CT SCAN
--- NOTE | 2021-01-14 10:15 | NUR ---
PT STATES "WHENEVER I GET MORHPINE I FEEL VERY NAUSEASTED" ERMD MADE AWARE
--- NOTE | 2021-01-14 10:20 | NUR ---
PT STATES "IM OKAY WITH GETTING MORPHINE FOR THE PAIN" MED ADMININSTERED.
[2021-01-14] MEDS: NACL 0.9% 1,000 ML IV SCH ×2 (12:05→23:50)
--- NOTE | 2021-01-14 12:24 | NUR ---
Patient will be admitted to care of DR GARCIA. Admited to MED SURG. Will go to [id number]. Belongings list completed. Report to NOEL DELACRUZ.
[2021-01-14 12:30] VITALS: BP 177/83
--- NOTE | 2021-01-14 12:30 | NUR ---
RECEIVED PATIENT ON THE UNIT AND ASSISTED TO BED, V/S TAKEN AND MRSA NARES DONE.ORIENTED TO BED AND CHANGED GOWN IV INTACT WITH NS AT 80 MLS/HR. SAFETY MEASURES IN PLACE AND CALL LIGHT WITHIN REACH. WILL CONTINUE TO MONITOR.
--- NOTE | 2021-01-14 12:30 | NUR ---
PT VITAL SIGNS TAKEN BP 177/[address]ARCIA AWARE.
[2021-01-14] MEDS: KETOROLAC 15 MG/ML VIAL IVP SCH ×2 (13:01→17:52)
--- NOTE | 2021-01-14 13:01 | NUR ---
PT COMPLAINS OF PAIN IN THE BACK AND ABDOMEN 10/01 CHECK VITAL SIGNS, PAIN MEDICATION GIVEN.
[2021-01-14] MEDS: amLODIPine 5 MG TAB PO SCH (15:33)
[2021-01-14 16:00] VITALS: BP 156/94
[2021-01-14] MEDS ORDERED: KETOROLAC 15 MG/ML VIAL IM SCH (18:00)
--- NOTE | 2021-01-14 19:27 | NUR ---
ENDORSED TO NIGHT NURSE PT IS STABLE
[2021-01-14 20:00] VITALS: BP 165/90
[2021-01-15] VITALS (7 sets, daily range): BP systolic 137–209; BP diastolic 55–115
[2021-01-15] MEDS: KETOROLAC 15 MG/ML VIAL IVP SCH ×4 (00:22→18:00)
[2021-01-15] MEDS: MORPHINE SULFATE 2 MG/ML SYR IVP PRN (06:00)
[2021-01-15 06:31] LABS: CARBON DIOXIDE 26.6 mmol/L (21-32); CREATININE 0.8 mg/dL (0.6-1.3); POTASSIUM 3.6 mmol/L (3.5-5.1)
[2021-01-15 06:36] LABS: ANION GAP 12.5 (8-16); CARBON DIOXIDE 27.2 mmol/L (21-32); CREATININE 0.8 mg/dL (0.6-1.3); MAGNESIUM 1.9 mg/dL (1.8-2.4); POTASSIUM 3.7 mmol/L (3.5-5.1); TOTAL BILIRUBIN 0.5 mg/dL (0.0-1.0)
[2021-01-15] MEDS: amLODIPine 5 MG TAB PO SCH (09:17)
[2021-01-15] MEDS: ACETAMINOPHEN 325 MG TAB PO PRN (09:26)
--- NOTE | 2021-01-15 10:38 | NUR ---
RECEIVED REPORT FROM POST HOLE DIGGING MACHINE OPERATOR NURSE. PT STABLE. NO S/S OF DISTRESS. CALL LIGHT IN REACH. ALL SAFETY MEASURES IN PLACE.
[2021-01-15] MEDS: NACL 0.9% 1,000 ML IV SCH (12:12)
--- NOTE | 2021-01-15 12:13 | NUR ---
PT MEDICATED FOR PAIN PER MD ORDER. PT STATED PAIN 10/01. EDUCATED ON MEDICATION GIVEN. PT VERBALIZED UNDERSTANDING. PT GIVEN ICE PER REQUEST. NO S/S OF DISTRESS. CALL LIGHT IN REACH. ALL SAFETY MEASURES IN PLACE. IV FLUIDS RUNNING PER MD ORDER.
[2021-01-15] MEDS ORDERED: AMLO-3 PO (14:04)
[2021-01-15] MEDS ORDERED: MELO7.5T11 PO (14:05)
--- NOTE | 2021-01-15 14:47 | NUR ---
PT IV FLUIDS HELD PER MD. SPOKE WITH PT ABOUT DISCHARGE PLANS. PT VERBALIZED UNDERSTANDING. NO S/S OF DISTRESS. CALL LIGHT IN REACH. ALL SAFETY MEASURES IN PLACE
[2021-01-15] MEDS: ONDANSETRON 4 MG/2 ML VIAL IVP PRN ×2 (15:10→19:27)
--- NOTE | 2021-01-15 15:10 | NUR ---
PATIENT STATED FEELING NAUSEOUS. PT GIVEN AND ICE PACK AND MEDICATED FOR NAUSEA. EDUCATED ON MEDICATION GIVEN. PT VERBALIZED UNDERSTANDING. CALL LIGHT IN REACH. ALL SAFETY MEASURES IN PLACE. WILL REASSESS.
--- NOTE | 2021-01-15 17:20 | NUR ---
IV INFILTRATED. IV REMOVED, CANULA INTACT. WILL INSERT NEW IV. PT TOLERATED REMOVAL WELL. NO S/S OF DISTRESS. ALL SAFETY MEASURES IN PLACE.
--- NOTE | 2021-01-15 19:20 | NUR ---
PATIENT COMPLAINED OF PAIN AND NAUSEA. NEW IV INSERTED LEFT WRIST 24 G. MEDICATIONS GIVEN PER MD ORDER. EDUCATED ON MEDICATIONS. PT VERBALIZED UNDERSTANDING. CALL LIGHT IN REACH. ALL SAFETY MEASURES IN PLACE.
--- NOTE | 2021-01-15 19:29 | NUR ---
ENDORSED PT TO INDEX CLERK NURSE. PT STABLE. NO S/S OF DISTRESS. BREATHING SYMMETRICAL. CALL LIGHT IN REACH. ALL SAFETY MEASURES IN PLACE.
--- NOTE | 2021-01-15 19:40 | NUR ---
NURSE REPORT REPORT OBTAINED FROM DAYSHIFT NURSE ALEA AND THIS NURSE ASSUME CARE OF PATIENT. DAYSHIFT NURSE GAVE IV TORADOL.
--- NOTE | 2021-01-15 20:57 | NUR ---
NURSE NOTES VS TAKEN. BP 209/111 R ARM AND 204/115 L ARM. MD BEING NOTIFIED TO OBTAIN BP MED.
[2021-01-15] MEDS ORDERED: hydrALAZINE 20 MG/ML VIAL ONE (21:18)
[2021-01-15] MEDS ORDERED: hydrALAZINE 20 MG/ML VIAL IVP PRN (21:20)
--- NOTE | 2021-01-15 21:24 | NUR ---
NURSE NOTES HYDRALAZINE 10 MG GIVEN ORDERED AT 2123. BP 202/91 202/91AND AT 2136- 175/79.
--- NOTE | 2021-01-16 | NUR ---
NURSE NOTES GIVEN AT TORADOL 15 MG IVP AT 0000 AND ALSO ACETAMINOPHEN 650 MG PO FOR JOY. MD HAS BEEN PAGED X 2 ABOUT BP 187/98 AND HR 98.
[2021-01-16 00:10] VITALS: BP 187/98
[2021-01-16] MEDS: NACL 0.9% 1,000 ML IV SCH (00:20)
[2021-01-16] MEDS: MORPHINE SULFATE 2 MG/ML SYR IVP PRN ×2 (02:21→09:21)
[2021-01-16 03:25] VITALS: BP 217/107
--- NOTE | 2021-01-16 03:35 | NUR ---
NURSE NOTES THIS NURSE TRIED TO PAGE THE MD [employer] SALES AND LENDING TEAM MEMBER ABOUT PATIENT BP. NO RETURN CALL.
[2021-01-16 03:36] VITALS: BP 212/112
--- NOTE | 2021-01-16 03:36 | NUR ---
NURSE NOTES BP AT 0331- 217/107 AND HYDRALAZINE 10 MG GIVEN IVP. RECHECKED AT 0336- 212/112. WILL RECHECK IN 035
--- NOTE | 2021-01-16 05:00 | NUR ---
NURSE NOTES BP TAKEN 187/. PATIENT ASKED WHY HER MED TRIAMTERENE NOT BEING GIVEN. EXPLAINED THAT THE NURSE ADMITTING HER SHOULD HAD LET THE MD KNOW THAT SHE TAKES THAT MED.
[2021-01-16 06:00] VITALS: BP 184/79
[2021-01-16] MEDS: KETOROLAC 15 MG/ML VIAL IVP SCH ×2 (06:11)
--- NOTE | 2021-01-16 07:06 | NUR ---
RECEIVED REPORT FROM WEBBING TACKER NURSE. PT RESTING IN BED. NO S/S OF DISTRESS. BREATHING SYMMETRICAL. CALL LIGHT IN REACH ALL SAFETY MEASURES IN PLACE.
--- NOTE | 2021-01-16 07:15 | NUR ---
NURSE REPORT REPORT GIVEN DAY SHIFT NURSE ALEA AND THIS NURSE ASSUMED CARE OF PATIENT. PATIENT NEEDS TO HAVE HOME MEDS BP MEDS CHECKED AND ORDERED TO BE GIVEN. SHE DIDN'T MENTION THIS YESTERDAY OR DAY BEFORE.
[2021-01-16 07:37] LABS: ALBUMIN 3.2 g/dL (3.4-5.0); ANION GAP 13.5 (8-16); CARBON DIOXIDE 25.1 mmol/L (21-32); CREATININE 0.8 mg/dL (0.6-1.3); MAGNESIUM 1.9 mg/dL (1.8-2.4); POTASSIUM 3.6 mmol/L (3.5-5.1); TOTAL BILIRUBIN 0.5 mg/dL (0.0-1.0)
[2021-01-16] MEDS ORDERED: hydrALAZINE 25 MG TAB PO SCH ×2 (08:53→21:00)
[2021-01-16] MEDS ORDERED: amLODIPine 5 MG TAB PO SCH (09:00)
[2021-01-16] MEDS: ONDANSETRON 4 MG/2 ML VIAL IVP PRN (09:20)
--- NOTE | 2021-01-16 09:22 | NUR ---
PATIENT HAS BEEN SCREENED AND CATEGORIZED LOW NUTRITION RISK. PATIENT WILL BE SEEN WITHIN 7 DAYS OF ADMISSION. 01/20/[address]
--- NOTE | 2021-01-16 09:54 | NUR ---
PATIENT STATED PAIN 10/10 AND NAUSEA. INSTRUCTED PT ON BREATHING EXERCISES AND PT MEDICATED PER MD ORDER. EDUCATED ON MEDICATIONS GIVEN. PT VERBALIZED UNDERSTANDING. NO S/S OF DISTRESS. BREATHING SYMMETRICAL. CALL LIGHT IN REACH ALL SAFETY MEASURES IN PLACE. WILL REASSESS.
--- NOTE | 2021-01-16 11:48 | NUR ---
DC PLANNING: CM SPOKE WITH THE PATIENT AT BEDSIDE. SHE WAS ADMITTED WITH ABDOMINAL PAIN AND ABNORMAL VAGINAL BLEEDING X 1 WEEK. SEEN BY CYBER INCIDENT RESPONDER, RECOMMENDATION IS TO F/U OP FOR CONTROL OR IUD PLACEMENT FOR THE VAGINAL BLEEDING, ABDOMINAL PAIN RELATED TO FIBROMYALGIA PER MD NOTES. THE PATIENT LIVES IN A 2 STORY HOUSE WITH HER PARENTS, AND USES A FWW OR CANE TO AMBULATE. SHE ALSO HAS DME OF A SHOWER CHAIR, NO H/O HOME HEALTH. THE PATIENT IS INDEPENDENT WITH AMBULATION AND ADL'S AND HAS INCOME OF SSI AND FOOD STAMPS. SHE CURRENTLY DOES NOT HAVE A PCP, CM ENCOURAGED HER TO REACH OUT TO HER INSURANCE FOR PHYSICIAN CHOICES SO SHE CAN START REGULAR VISITS AND MONITORING. NO DC NEEDS IDENTIFIED, CM WILL FOLLOW FOR NEEDS.
[2021-01-16 12:00] VITALS: BP 152/73
[2021-01-16] MEDS: ACETAMINOPHEN 325 MG TAB PO PRN ×2 (13:19)
--- NOTE | 2021-01-16 13:19 | NUR ---
PT EDUCATED ON DISCHARGE AND SIGNED. PT VERBALIZED UNDERSTANDING. IV REMOVED. CANULA INTACT. PT STATED PAIN 06/01. PT MEDICATED. EDUCATED ON MEDICATION GIVEN. PT VERBALIZED UNDERSTANDING. NO S/S OF DISTRESS. CALL LIGHT IN REACH. ALL SAFETY MEASURES IN PLACE. AWAITING PT RIDE
[2021-01-16] MEDS ORDERED: diphenhydrAMINE 50 MG/ML VIAL IVP SCH (14:11)
[2021-01-16] MEDS ORDERED: METOCLOPRAMIDE 10 MG/2 ML INJ VIAL IVP SCH (14:12)
--- NOTE | 2021-01-16 15:23 | NUR ---
PT FAMILY HAS NOT ARRIVED FOR VISION TEACHER. PT STATED FAMILY WILL NOT COME UNTIL AFTER 1600 OF NOW. PT REFUSED MEDICATIONS ORDERED DUE TO DISCONTINUED IV. ICE PACK WAS GIVEN TO PT PER REQUEST. PT RESTING. CALL LIGHT IN REACH. ALL SAFETY MEASURES IN PLACE.
--- NOTE | 2021-01-16 16:10 | NUR ---
PATIENT WHEELED TO FRONT FOR FITTER TACKER BY FAMILY. PT STABLE. ALL PERSONAL BELONGINGS IN POSSESSION. DC INSTRUCTIONS IN HAND.
== END 2021-01-16 16:10 | disposition home or self-care (01) ==
LOC: MED 02:57 → MMU 11:23 → MTU 12:20
PROVIDERS: ADMIT Student in an Organized Health Care Education/Training Program; ATTEND Student in an Organized Health Care Education/Training Program
DX: D25.9 Leiomyoma of uterus, unspecified (principal); Z20.822 Contact with and (suspected) exposure to COVID-19; N92.0 Excessive and frequent menstruation with regular cycle; K29.70 Gastritis, unspecified, without bleeding; G43.909 Migraine, unspecified, not intractable, without status migrainosus; M79.7 Fibromyalgia; I10 Essential (primary) hypertension; E11.9 Type 2 diabetes mellitus without complications; M06.9 Rheumatoid arthritis, unspecified; E66.01 Morbid (severe) obesity due to excess calories; Z79.899 Other long term (current) drug therapy
CPT/HCPCS: 36415; 74177; 76830; 80048; 80053; 81003; 83735; 85025; 85610; 85730; 87081; 87426; 96361; 96372; 96374; 96375; 96376; 99285; G0378; J0360; J1644; J1885; J2270; J2405; Q0092; Q9967